=== PATIENT | female | born 1930 | race Caucasian/White ===

== ENCOUNTER 2016-05-10 09:43 | Inpatient (IN) | payer MEDICARE, OTHER ==
[~2016-05-10] VITALS: Ht 160 cm; Wt 64.4 kg
[~2016-05-10 09:43] MED LIST: ASPI-653 PO; CARV25T PO; LORA-302 PO; OMEP20TA86 PO; PLAVIX (*) 75 M75 MG PO; PRA20 PO; ZES10 PO
[2016-05-10 09:50] VITALS: BP 170/83; PULSE 71; RESP 16; O2SAT 97
[2016-05-10] MEDS ORDERED: 0.9% Sodium Chloride 1,000 ML IV ONE (10:25)
--- NOTE | 2016-05-10 10:27 | ED.REPORT ---
HPI-General Illness Date of Service May 10, 2016 ED Provider: Valery Horn MD An 86 year old female with a history of colitis accompanied by hallucinations presents to the ED complaining of hallucinations onset yesterday. Per son, hallucinations have included plastic covering the patient up, and rain in the patient's living room. Per son, the patient still knows who her two sons are and she admits that she knows that other people are not seeing the hallucinations. The patient had similar symptoms a few months ago. Per son , 4 days ago the patient had hematuria and diarrhea so bad that he called EMS and the patient visited the ED. Diarrhea has since stopped. Per son ,the patient's last bowel movement was yesterday. Per son, the patient has been eating regularly, but she has had difficulty sleeping. The patient was recently taken off of antibiotics by Dr. Hendrickson. Nursing Notes Stated Complaint: HALLUCINATIONS Chief Complaint: Psychiatric Complaint Nursing Notes Reviewed: Yes Allergies: Coded Allergies: lisinopril (Verified Allergy, Unknown, joints swell up, 05/10/16) Scheduled Carvedilol (Carvedilol) 12.5 Mg Tablet 12.5 MG PO BID Clopidogrel (Clopidogrel) 75 Mg Tablet 75 MG PO DAILY Losartan Potassium (Losartan Potassium) 25 Mg Tablet 25 MG PO BID Ranitidine (Zantac) 150 Mg Tablet 150 MG PO BID General Time Seen by MD: 10:21 Chief Complaint Other (Hallucinations) Hx Obtained From: Patient, Son Arrived By: Walk-in Sudden in Onset?: No Onset Occurred: Yesterday Symptom Duration: Intermittent Recent Healthcare: Recent doctor visit Similar Sx Previous: Yes Past Medical History Past Medical History Notes: Medical records from [facility] are reviewed. Dr. Hendrickson is her doctor. Past Medical History ischemic Colitis approximaltey one year agoo, accompanied by hallucinations. Cardiac Stents LBBB Renal Failure Peripheral Neuropathy Reports: Hypertension Past Surgical History Reports: Angioplasty, Cholecystectomy, Hysterectomy Social History Per son, patient is in good physical shape. Ambulatory Status Independent Review of Systems Full Review of Systems GI: Reports: Diarrhea, Hematochezia Psychiatric: Reports: Hallucinations, visual Complete sys rev & neg: except as marked. Physical Exam Vital Signs Vital Signs Date Time Temp Pulse Resp B/P Pulse Ox O2 Delivery O2 Flow Rate FiO2 05/10/16 12:54 36.2 74 16 158/94 99 Room Air 05/10/16 09:50 36.0 71 16 170/83 97 Room Air Initial VS: Reviewed ENT: Mucous membranes moist, Conjunctiva normal, No scleral icterus Respiratory: Breath sounds normal, Clear to auscultation, No respiratory distress Cardiovascular: Regular rate & rhythm, Heart sounds normal, Intact distal pulses Abdomen / GI: No guarding, No rebound Extremities: No swelling Skin: Warm (Patient is well perfused. ), Dry, No cyanosis General/Constitutional: Awake, Alert Wrist / Hand: No swelling, No edema Lower Extremity / Pelvis / MS: No swelling, No edema Neurologic: Oriented X3 Patient is alert and orientedx3 with visual, auditory and tactile hallucinatins. Interpretation & Diagnostics Lab Results Interpretation Result Diagram: 05/11/16 0825 05/11/16 0825 Test 05/10/16 11:10 05/10/16 11:30 Urine Osmolality 264mOs/kH2O (250-1200) Osmolality 275 (275-300) Lactic Acid Level 0.9mmol/L (0.4-2.0) Total Bilirubin 0.2mg/dL (0.0-1.2) Aspartate Amino Transf (AST/SGOT) 36U/L (0-50) Alanine Aminotransferase (ALT/SGPT) 19U/L (0-32) Alkaline Phosphatase 65U/L (25-165) Troponin T < 0.010ug/L (0.0-0.011) Pro-B-Type Natriuretic Peptide 200.7pg/mL (0-738) Total Protein 7.2g/dL (6.4-8.4) Albumin 4.2g/dL (3.4-5.0) Procalcitonin 0.03ng/mL (0.00-0.08) Urine Color Yellow (YELLOW) Urine Appearance Clear (CLEAR,HAZY) Urine pH 5.5 (5.0-8.0) Urine Specific [place] 1.005 (1.003-1.035) Urine Protein Negativemg/dL (NEG,TRACE) Urine Glucose (UA) Negativemg/dL (NEGATIVE) Urine Ketones Negativemg/dL (NEGATIVE) Urine Occult Blood Negative (NEGATIVE) Urine Nitrite Negative (NEGATIVE) Urine Bilirubin Negative (NEGATIVE) Urine Urobilinogen Normalmg/dL (NORMAL) Urine Leukocyte Esterase Trace (NEGATIVE) Urine RBC 0-2/hpf (0-2) Urine WBC 0-5/hpf (0-5) Urine Epithelial Cells Occasional/hpf (NONE-MOD) Urine Crystals None seen (NONE SEEN) Urine Bacteria None/hpf (NONE-FEW) Urine Hyaline Casts None/lpf (NONE) Urine Granular Casts None seen (NONE SEEN) Urine Waxy Casts None seen (NONE SEEN) Urine Red Blood Cell Casts None seen (NONE SEEN) Urine White Blood Cell Casts None seen (NONE SEEN) Urine Mucus None seen (None Seen) Urine Trichomonas None seen (NONE SEEN) Urine Yeast None (NONE SEEN) Urinalysis Comment None Urine Culture Reflexed Indicated ECG Interpretation ECG Interpretation: Rate is 66. Sinus rhythm. Left bundle branch block. Time: 10:38 Interpreted by: ED physician X-Ray Chest Interpretation Chest Xray Interpretation: IMPRESSION: 1. No acute cardiopulmonary disease. Dictated by: Hira Del Valle M.D. on 05/10/2016 at 11:08 Approved by: Hira Del Valle M.D. on 05/10/2016 at 11:15 Interpretation / Wet Read by: Interpret - Radiologist Re-Eval/Medical Decision Source of Hx: Old records Time of Eval: 13:53 Re-Evaluation/Progress Note: Rechecked patient and performed physical exam. Explained test results, diagnosis and plan for admission. Patient understands and agrees with the plan. All questions adressed. Consultation : Referral / Consult Name: Karri Hays MD Consulted With: Hospitalist Call Returned at: 14:23 School Community Relations Coordinator: Accepts admit Note: Discussed patient case with Dr. Hays who accepts patient admit. Counseled Regarding: Diagnosis, Lab results, Need for admission Discharge & Departure Primary Impression: Hyponatremia Additional Impression: Altered mental status Disposition: ADMITTED TO HOSPITAL Discharge Condition All VS Reviewed: Yes Condition: Improved Referrals: Jayme Slater MD (PCP) Scribhazel Attestation Portions of this note were transcribed by Rodney Jaramillo. I, Dr. Horn personally performed the history, physical exam and medical decision-making; I reviewed and confirmed the accuracy of the information in the transcribed note. Signed by: Ata Barnett, 05/10/2016 4906.. copies to: Jayme Slater MD, Shawna L MD May 10, 2016 10:27 Rodney Jaramillo May 10, 2016 10:36 None seen (NONE SEEN) Urine White Blood Cell Casts None seen (NONE SEEN) Urine Mucus None seen (None Seen) Urine Trichomonas None seen (NONE SEEN) Urine Yeast None (NONE SEEN) Urinalysis Comment None Urine Culture Reflexed Indicated ECG Interpretation ECG Interpretation: Rate is 66. Sinus rhythm. Left bundle branch block. Time: 10:38 Interpreted by: ED physician X-Ray Chest Interpretation Chest Xray Interpretation: IMPRESSION: 1. No acute cardiopulmonary disease. Dictated by: Hira Del Valle M.D. on 05/10/2016 at 11:08 Approved by: Hira Del Valle M.D. on 05/10/2016 at 11:15 Interpretation / Wet Read by: Interpret - Radiologist Re-Eval/Medical Decision Source of Hx: Old records Time of Eval: 13:53 Re-Evaluation/Progress Note: Rechecked patient and performed physical exam. Explained test results, diagnosis and plan for admission. Patient understands and agrees with the plan. All questions adressed. Consultation : Referral / Consult Name: Karri Hays MD Consulted With: Hospitalist Call Returned at: 14:23 School Community Relations Coordinator: Accepts admit Note: Discussed patient case with Dr. Hays who accepts patient admit. Counseled Regarding: Diagnosis, Lab results, Need for admission Discharge & Departure Primary Impression: Hyponatremia Additional Impression: Altered mental status Disposition: ADMITTED TO HOSPITAL Discharge Condition All VS Reviewed: Yes Condition: Improved Referrals: Jayme Slater MD (PCP) Ata Attestation Portions of this note were transcribed by Rodney Jaramillo. IDr. Horn personally performed the history, physical exam and medical decision-making; I reviewed and confirmed the accuracy of the information in the transcribed note. Signed by: Ata Barnett, 05/10/2016 1852.. copies to: Jayme Slater MD, Shawna L MD May 10, 2016 10:27 Rodney Jaramillo May 10, 2016 10:36 personally performed the history, physical exam and medical decision-making; I reviewed and confirmed the accuracy of the information in the transcribed note. Signed by: Ata Barnett, 05/10/2016 1821. copies to: Jayme Slater MD, Shawna L MD May 10, 2016 10:27 Rodney Jaramillo 31, 2017 10:36 Valery Horn MD May 10, 2016 10:27 Rodney Jaramillo May 10, 2016 10:36
--- NOTE | 2016-05-10 11:16 | DRSVH ---
PROCEDURE: X-RAY CHEST ONE VIEW, PORTABLE ([id number]) INDICATIONS: altered mental status TECHNIQUE: One view of the chest was acquired. COMPARISON: None. FINDINGS: Surgical changes and devices: None. Lungs and pleura: No pleural effusions or pneumothorax. Lungs are clear. Mediastinum: Mediastinal contours appear normal. Heart size is normal. Bones and chest wall: No suspicious bony lesions. Overlying soft tissues appear unremarkable. IMPRESSION: 1. No acute cardiopulmonary disease. Dictated by: Hira Del Valle M.D. on 05/10/2016 at 11:08 Approved by: Hira Del Valle M.D. on 05/10/2016 at 11:15
[2016-05-10 11:27] LABS: BASOPHILS % (AUTO) 0.4 % (0-3); EOSINOPHILS % (AUTO) 4.4 % (0-5); MONOCYTES % (AUTO) 12.9 % (4-12); Mean Corpuscular Volume 90.2 fL (81-100); NEUTROPHILS % (AUTO) 58.1 % (40-74); Platelet Count 240 bil/L (150-400)
[2016-05-10 11:48] LABS: APPEARANCE,URINE CLEAR (CLEAR,HAZY); COLOR,URINE YELLOW (YELLOW); PH,URINE 5.5 (5.0-8.0)
[2016-05-10 11:49] LABS: OCCULT BLOOD,URINE NEGATIVE (NEGATIVE); UROBILINOGEN,URINE NORMAL (NORMAL)
[2016-05-10 11:52] LABS: TROPONIN T < 0.010 ug/L (0.0-0.011)
[2016-05-10 12:54] VITALS: BP 158/94; PULSE 74; RESP 16; O2SAT 99
[2016-05-10] MEDS ORDERED: Alum-Mag Hydrox-Simeth 30 mL Suspension PO PRN (14:40)
[2016-05-10] MEDS ORDERED: Ondansetron 2 mg/mL 2 mL Inj IVPUSH PRN (14:40)
[2016-05-10] MEDS ORDERED: Polyethylene Glycol (PEG) 17 Gm Powder PO PRN (14:40)
[2016-05-10] MEDS ORDERED: CLOP75TA28 PO (14:54)
[2016-05-10] MEDS ORDERED: CARV12.52 PO (14:54)
[2016-05-10] MEDS ORDERED: LOSA25TA21 PO (14:54)
[2016-05-10] MEDS ORDERED: RANI150T11 PO (14:54)
[2016-05-10 15:31] VITALS: BP 155/82; PULSE 85; RESP 16; O2SAT 98
[2016-05-10] MEDS: 0.9% Sodium Chloride 1,000 ML IV SCH (15:53)
--- NOTE | 2016-05-10 16:51 | NUR ---
Admit note: Patient [place] [facility] 1550. Patient is alert and oriented and answering questions appropriately. Patient stated that the hallucinations that she was experiencing have subsided . Patient is able to state her name and birthday and the reason for being in the hospital ("Due to low sodium level"). Patient ordered her dinner with assistance. Her IV NS was started. She was oriented to her room call light and caregivers. Addendum: 05/10/16 at 1701 by LEYLA VILLALOBOS RN Patients Admit questions were completed in the ER by the admit nurse.
--- NOTE | 2016-05-10 18:29 | PCM.HPMED ---
Subjective Date of Service May 10, 2016 Primary Provider: Admitting Physician: Karri Hays MD Primary Care Physician: Jayme Slater MD Attending Physician: Karri Hays MD Admit Status: From the Emergency Department, Full Admit, Remote Telemetry Chief Complaint: Hallucinations History of Present Illness: Carlota Hernandes is a 86 year old female with Colitis, Coronary artery disease, Hyperlipidemia who presents to [facility] emergency department complaining of hallucinations onset yesterday These episodes started about 4 days ago. Per son, the hallucinations have included plastic covering the patient up coming down from the ceiling, and rain in the patient's living room. A few months ago she saw three identical looking men staring at her. This has caused some insomnia as the patient was scared of these hallucinations. Other symptoms includes diarrhea without any nausea or vomiting. She was diagnosed with colitis and the diarrhea had stopped. Denies any melena or hematochezia. He appetite was poor and was still trying to drink fluids. Case discussed with Dr Cabello, Hyponatremia identified and plans to admit for management Review of Systems: Pertinent positives as noted in HPI. All other systems were reviewed and are negative Allergies Coded Allergies: lisinopril (Verified Allergy, Unknown, joints swell up, 05/10/16) Home Medications From Carlota Cowan. [id number] 05/08/2016 10:40 AM 02/15 alendronate 70 mg tablet take 1 tablet by oral route every week in the morning , at least 30 min before first food, beverage, or medication of day Angelica Allergy 180 mg tablet take 1 tablet by oral route every day as needed allopurinol 100 mg tablet take 1 tablet by oral route every day Aspir-Low 81 mg tablet,delayed release take 1 tablet by oral route every day clobetasol 0.05 % scalp solution Apply twice daily. Alternate weekly with fluocinonide. Once controlled alternate weekly but apply 2-3 times a week COREG 12.5MG TABLETS TAKE 1 TABLET BY MOUTH TWICE A DAY fluocinonide 0.05 % topical solution alternate weekly with clobetasol solution hydrocortisone valerate 0.2 % topical cream apply by topical route 2 times every day to the affected area(s) on the face x 2wks then 2-3 times a wk as needed ketoconazole 2 % shampoo alternate daily with other shampoos to the scalp. lather, leave in place for 5 minutes, and then rinse off with water losartan 50 mg tablet take 1/2 tablet by oral route every day ondansetron 4 mg disintegrating tablet take 1 tablet by oral route every 8 hours as needed and place on top of the tongue where they will dissolve, then swallow PLAVIX 75MG TABLETS TAKE 1 TABLET BY MOUTH ONCE DAILY ranitidine 150 mg tablet take 1 tablet by oral route 2 times every day rosuvastatin 5 mg tablet take 1 tablet by oral route every day Salex 6 % shampoo apply by topical route to wet hair ; work into a full lather then rinse thoroughly and pat dry as directed. Do not apply to the face PMH Hypertension Hyperlipidemia Chronic Kidney Disease stage 3 Coronary artery disease s/p PTCA with normal stress test 04/11/15 Chronic LBBB Carotid artery disease Anxiety Dysphagia Gout . Surgical History Hysterectomy and BSO Cardiac Catheterization Cholecystectomy Family History Mother has Hypertension Social History Hx Alcohol Use: No Hx Substance Use: No Hx Tobacco Use: No Smoking Status: Never Smoker Living Arrangement: Alone (with sons checking in on her) Exam Vital Signs Vital Sign - Last Date Time Temp Pulse Resp B/P Pulse Ox O2 Delivery O2 Flow Rate FiO2 05/10/16 12:54 36.2 74 16 158/94 99 Room Air Exam General: Alert, Oriented X3, Cooperative, No acute Distress Eyes: PERRLA, Scleral Anicteric Mouth: Mouth Normal, Mucous Membranes Moist/[place] Neck: Supple, no Thyromegaly, trachea central. Chest & Lungs: Clear to auscultation & percussion, No adventitious breath sounds, no crackles, no wheeze Cardiovascular: Normal S1, Normal S2, No Murmurs/Rubs/Gallops, Regular Rate/ Rhythm, Murmur, Other (No JVD, no peripheral edema) Pulses: Radial (present and equal), Dorsalis Pedi (present and equal) Abdomen: Soft, Non-tender, Non-distended, Normoactive bowel tones. Musculoskeletal: Unremarkable. Normal range of motion, no swollen or erythematous joints Extremities: No edema, no cyanosis, no clubbing. Skin: No rashes. Warm and dry, no erythematous areas Neurological: Grossly neurologically intact, has generalized weakness, Normal Speech, Sensation Intact Lymphatic: Lymph nodes Cervical and Axillary not palpable Lab and Diagnostics Labs Laboratory Tests Test 05/10/16 11:10 05/10/16 11:30 White Blood Count 7.3th/mm3 (3.8-10.1) Red Blood Count 3.88mil/mm3 (3.90-5.20) Hemoglobin 12.4g/dL (12.0-15.6) Hematocrit 35.0% (35.0-46.0) Mean Corpuscular Volume 90.2fL (81-100) Mean Corpuscular Hemoglobin 32.0pg (27.0-35.0) Mean Corpuscular Hemoglobin Concent 35.4% (32.0-37.0) Red Cell Distribution Width 11.8% (12.3-15.4) Platelet Count 240bil/L (150-400) Neutrophils (%) (Auto) 58.1% (40-74) Lymphocytes (%) (Auto) 24.1% (14-46) Monocytes (%) (Auto) 12.9% (4-12) Eosinophils (%) (Auto) 4.4% (0-5) Basophils (%) (Auto) 0.4% (0-3) Sodium Level 123mEq/L (134-144) Potassium Level 3.9mEq/L (3.5-5.2) Chloride Level 85mEq/L (97-108) Carbon Dioxide Level 22mmol/L (18-29) Blood Urea Nitrogen 26mg/dL (8-27) Creatinine 1.21mg/dL (0.57-1.00) Estimat Glomerular Filtration Rate 61mL/min (>59) Glucose Level 99mg/dL (60-99) Lactic Acid Level 0.9mmol/L (0.4-2.0) Calcium Level 10.0mg/dL (8.5-10.1) Total Bilirubin 0.2mg/dL (0.0-1.2) Aspartate Amino Transf (AST/SGOT) 36U/L (0-50) Alanine Aminotransferase (ALT/SGPT) 19U/L (0-32) Alkaline Phosphatase 65U/L (25-165) Troponin T < 0.010ug/L (0.0-0.011) Pro-B-Type Natriuretic Peptide 200.7pg/mL (0-738) Total Protein 7.2g/dL (6.4-8.4) Albumin 4.2g/dL (3.4-5.0) Procalcitonin 0.03ng/mL (0.00-0.08) Urine Color Yellow (YELLOW) Urine Appearance Clear (CLEAR,HAZY) Urine pH 5.5 (5.0-8.0) Urine Specific [place] 1.005 (1.003-1.035) Urine Protein Negativemg/dL (NEG,TRACE) Urine Glucose (UA) Negativemg/dL (NEGATIVE) Urine Ketones Negativemg/dL (NEGATIVE) Urine Occult Blood Negative (NEGATIVE) Urine Nitrite Negative (NEGATIVE) Urine Bilirubin Negative (NEGATIVE) Urine Urobilinogen Normalmg/dL (NORMAL) Urine Leukocyte Esterase Trace (NEGATIVE) Urine RBC 0-2/hpf (0-2) Urine WBC 0-5/hpf (0-5) Urine Epithelial Cells Occasional/hpf (NONE-MOD) Urine Crystals None seen (NONE SEEN) Urine Bacteria None/hpf (NONE-FEW) Urine Hyaline Casts None/lpf (NONE) Urine Granular Casts None seen (NONE SEEN) Urine Waxy Casts None seen (NONE SEEN) Urine Red Blood Cell Casts None seen (NONE SEEN) Urine White Blood Cell Casts None seen (NONE SEEN) Urine Mucus None seen (None Seen) Urine Trichomonas None seen (NONE SEEN) Urine Yeast None (NONE SEEN) Urinalysis Comment None Urine Culture Reflexed Indicated Microbiology 05/10/16 Blood Culture, Received Pending 05/10/16 Urine Culture, Received Pending Result Diagram: 05/10/16 1110 05/10/16 1110 X-Rays, CTs and MRIs X-RAY CHEST ONE VIEW, PORTABLE 05/10 IMPRESSION: 1. No acute cardiopulmonary disease. Dictated by: Hira Del Valle M.D. on 05/10/2016 at 11:08 Approved by: Hira Del Valle M.D. on 05/10/2016 at 11:15 Assessment & Plan Carlota Hernandes is a 86 year old female with Colitis, Coronary artery disease, Hyperlipidemia who presents to [facility] emergency department complaining of hallucinations 1. Acute Hyponatremia. Present on admission Likely Hypovolemic hypotonic hyponatremia. Due to recent bout of diarrhea that has now resolved. Patient not on any diuretics - IV fluids resuscitations - checking serum and Urine osmolality 2. Acute Metabolic Encephalopathy. Present on admission Unclear if is purely due to the Hyponatremia of the patient is developing some psychosis - high risk for delirium, avoid psychoactive medications - if hallucinations persist despite normalizing sodium then consider a psychiatric evaluation 3. Coronary artery disease Currently without any angina or EKG changes (chronic LBBB) - continue Aspirin and Plavix , Coreg 12.5 mg bid and Stain 4 Hypertension - continuing Losartan 25 mg daily and Coreg 5 Hyperlipidemia - continue Rosuvastatin 5 mg daily 6 Gout - continue Allopurinol 100 mg daily - Acetaminophen as needed for mild pain/fever/headache - Bowel regimen as needed - Antiemetic as needed Patient admitted under inpatient status with expected length of stay > 2 midnights for severity of present symptoms, complexities of treatment plan and risk for adverse event . Resuscitation Status: CPR: Attempt Resuscitation Karri Hays MD May 10, 2016 14:53
[2016-05-10 18:51] VITALS: BP 168/76; PULSE 88; RESP 16; O2SAT 96
[2016-05-10 18:51] LABS: OSMOLALITY, URINE 264 mOs/kH2O (250-1200)
[2016-05-10] MEDS: Heparin 5,000 Unit/mL Inj SUBQ SCH (19:41)
[2016-05-10 22:01] VITALS: BP 163/77; PULSE 95; RESP 18; O2SAT 97
[2016-05-11] MEDS: Heparin 5,000 Unit/mL Inj SUBQ SCH ×3 (02:28→16:00)
[2016-05-11] MEDS: 0.9% Sodium Chloride 1,000 ML IV SCH ×2 (02:29→10:42)
[2016-05-11 05:32] VITALS: BP 151/84; PULSE 87; RESP 18; O2SAT 97
[2016-05-11 08:49] LABS: BASOPHILS % (AUTO) 0.5 % (0-3); EOSINOPHILS % (AUTO) 5.6 % (0-5); Mean Corpuscular Volume 92.8 fL (81-100); NEUTROPHILS % (AUTO) 48.5 % (40-74); Platelet Count 234 bil/L (150-400)
[2016-05-11 09:20] LABS: INR 0.97 ratio
[2016-05-11 09:44] LABS: Magnesium 1.7 mg/dL (1.6-2.6)
--- NOTE | 2016-05-11 10:06 | NUR ---
BM Pt states she is unsure when her last BM was but says "it's been awhile." PRN stool softener given this AM. She denies any tenderness to abdomen, no distention noted. BT are hypoactive.
--- NOTE | 2016-05-11 11:15 | NUR ---
Off unit Pt off unit to MRI.
--- NOTE | 2016-05-11 12:30 | DRSVH ---
PROCEDURE: MRI STROKE PROTOCOL ([id number]) Pre- and post-contrast brain MRI, non-contrast brain MR angiogram, pre- and postcontrast neck MR calixto ogram INDICATIONS: altered mental status TECHNIQUE: Brain: Noncontrast axial T1 spin echo, axial T2 fast spin echo, sagittal and axial FLAIR, coronal T2 fast spin echo, axial gradient echo, axial diffusion and ADC through the brain. After the administr ation of contrast, axial 3D VIBE of the cranial vasculature and brain. Brain MRA: Non-contrast 3-D time of flight MR angiogram, with multiple kpppdtk-npppgjqrr-guestouxce (MIP) reformats performed. Neck MRA: Axial and sagittal TruFISP through the neck. Coronal dynamic MR angiogram during administ ration of contrast in the arterial and venous phases, with 3-dimenstional belyrzl-ourjqcqxb-vcoayntmh n (MIP) reformats constructed from subtraction images. COMPARISON: CT brain 04/08/12. FINDINGS: Image quality: Excellent. BRAIN: CSF spaces: There is a cerebral volume loss with prominence of the ventricles and sulci. Basal ciste rns are patent. No extra-axial fluid collections. Brain: Diffusion-weighted images demonstrate no acute infarcts. No intracranial hemorrhage, mass, o r mass effect. Isaac-white matter interface is preserved. There are subcortical and periventricular foci of white matter T2 hyperintensity consistent with mild chronic small vessel ischemic changes. B rainstem appears normal. Normal intravascular flow voids are present. No abnormal intracranial enha ncement. Skull and face: Calvarial marrow signal is normal. Orbits appear normal. Sinuses: Sinuses and mastoids are clear. BRAIN MR ANGIOGRAM: Anterior circulation: Intracranial internal carotid arteries are patent bilaterally. The flow withi n the paired anterior cerebral arteries is patent bilaterally. The flow within the middle cerebral a rteries is patent bilaterally. The anterior communicating artery is visualized. No high-grade steno ses, occlusions, or aneurysms. Posterior circulation: The visualized portions of the vertebral arteries appear patent and join to f orm a patent artery. The flow within the posterior cerebral arteries is patent bilaterally. No high -grade stenoses, occlusions, or aneurysms. NECK MR ANGIOGRAM: Carotids: Great vessels demonstrate conventional anatomy as they arise from the aortic arch. The or igins of the common carotid arteries appear patent. The calibers and courses of both common carotid arteries are normal. There is focal narrowing of less than 50% in the right carotid bulb. There is also narrowing in the proximal right external carotid artery of approximately 60%. The left carotid bulb appears widely patent. The internal carotid arteries demonstrate normal course and caliber. Posterior circulation: The origins of the vertebral arteries appear patent. More superior portions of both vertebral arteries demonstrate normal course and caliber, and join to form a normal appearing basilar artery. Miscellaneous: Subclavian arteries appear patent. Pre-contrast images through the neck demonstrate mild multilevel degenerative disc disease in the lower cervical spine. IMPRESSION: BRAIN MRI: 1. No evidence of infarct or other acute intracranial abnormality. 2. Mild to moderate cerebral volume loss and mild chronic white matter small vessel ischemic changes . BRAIN MR ANGIOGRAM: 1. No high-grade stenosis or occlusion of the central intracranial arteries. NECK MR ANGIOGRAM: 1. Focal narrowing in the right carotid bulb of less than 50%. Left carotid bulb appears widely hill nt. 2. Narrowing in the proximal right external carotid artery of approximately 60%. The estimate of stenosis included in the report of the imaging study was calculated using the NASCET method Dictated by: Hira Del Valle M.D. on 05/11/2016 at 12:28 Approved by: Hira Del Valle M.D. on 05/11/2016 at 12:28
[2016-05-11 14:28] VITALS: BP 178/64; PULSE 69; RESP 20; O2SAT 99
--- NOTE | 2016-05-11 15:09 | NUR ---
Social Work: Initial Assessment Data: Pt is an 86 y/o female admitted for AMS, hyponatremia. Pt's PCP is Dr Slater, pt's insurance is Medicare with [employer]. EMR reviewed. Readmit score is 2. SPECIAL EDUCATION PARAPROFESSIONAL met with pt at bedside, role explained. Pt states she lives in [place] alone in a single story home with no stairs where she uses no DME. Pt states her son visits her often. She states she drives, has no hx of HH or SNF, no LTC or VA benefits, and is not a caregiver. SPECIAL EDUCATION PARAPROFESSIONAL will continue to follow for possible needs. Assessment: Pt who is independent at baseline. Plan: Pt will d/c home via POV when medically stable. SPECIAL EDUCATION PARAPROFESSIONAL will continue to follow for possible needs. YADI Lamar Addendum: 05/11/16 at 1512 by MILVIA PARKER SS Amended: Links added.
[2016-05-11] MEDS ORDERED: Non-Formulary Medication (Ranitidine (Zantac) 150 MG) PO SCH (15:20)
--- NOTE | 2016-05-11 15:23 | PCM.PNMED ---
Subjective Date of Service May 11, 2016 Subjective denies any new issues/complaints. no further hallucinations today Exam Vital Signs Vital Sign - Last Date Time Temp Pulse Resp B/P Pulse Ox O2 Delivery O2 Flow Rate FiO2 05/11/16 14:28 36.4 69 20 178/64 99 Room Air Intake and Output 05/10/16 05/10/16 05/11/16 Cumulative From/Thru 15:00 23:00 07:00 05/10/16 09:50 - 05/11/16 06:36 Intake Total 1000 ml 356 ml 1661 ml 3017 ml Output Total 650 ml 650 ml Balance 1000 ml 356 ml 1011 ml 2367 ml Intake Oral 356 ml 200 ml 556 ml IV Total 1000 ml 1461 ml 2461 ml Output Urine Total 650 ml 650 ml # Voids 0 0 # Bowel Movements 0 0 0 General: Alert, Oriented X3, Cooperative, No Acute Distress Head: Normal Eyes: PERRLA, EOMI, Scleral Anicteric Nose: Mucous Membr Moist/[place] Mouth: Mucous Membr Moist/[place] Neck: Supple Chest & Lungs: Chest Wall Normal, Clear to auscultation & percussion Cardiovascular: Regular Rate/Rhythm Pulses: NL carotid, radial, femoral, DP, PT Abdomen: Non-tender, Non-distended, Normoactive bowel tones, Soft Extremities: No cyanosis/clubbing/edma bilat Neurological: Grossly Neurologically Intact, Cranial Nerves 2-12 Intact, Normal Speech IVs and Medications Medications Reviewed: Medications were reviewed in detail Lab and Diagnostics Result Diagram: 05/11/16 0825 05/11/16 0825 X-Rays, CTs and MRIs X-RAY CHEST ONE VIEW, PORTABLE 05/10 IMPRESSION: 1. No acute cardiopulmonary disease. Dictated by: Hira Del Valle M.D. on 05/10/2016 at 11:08 Approved by: Hira Del Valle M.D. on 05/10/2016 at 11:15 Assessment & Plan 86 year old female with Colitis, Coronary artery disease, Hyperlipidemia who presents to [facility] emergency department complaining of hallucinations 1. Acute Hyponatremia. Present on admission. Resolved with IVF Likely Hypovolemic hypotonic hyponatremia. Due to recent bout of diarrhea that has now resolved. Patient not on any diuretics - f/u 2. Acute Metabolic Encephalopathy. Present on admission. improved Unclear if is purely due to the Hyponatremia of the patient is developing some psychosis - high risk for delirium, avoid psychoactive medications - if hallucinations persist despite normalizing sodium then consider a psychiatric evaluation 3. Coronary artery disease Currently without any angina or EKG changes (chronic LBBB) - continue home dose Plavix , Coreg 12.5 mg bid and Stain 4. Hypertension - continuing Losartan 25 mg daily and Coreg 5. Hyperlipidemia - continue Rosuvastatin 5 mg daily 6. Gout - continue Allopurinol 100 mg daily Dispo: likely tomorrow if continue to remain stable and asymptomatic Resuscitation Status: CPR: Attempt Resuscitation Gerard Pennington May 11, 2016 15:23
--- NOTE | 2016-05-11 16:03 | NUR ---
Elevated Systolic Scheduled Blood pressure medication given as ordered. patient is asymptomatic.
[2016-05-11 17:02] VITALS: BP 179/76
[2016-05-11 18:34] VITALS: PULSE 67; RESP 18; O2SAT 99
[2016-05-11 20:11] VITALS: BP 158/75; PULSE 55; RESP 18; O2SAT 96
[2016-05-12] MEDS: Heparin 5,000 Unit/mL Inj SUBQ SCH ×2 (00:25→08:13)
--- NOTE | 2016-05-12 05:47 | NUR ---
Uneventful Night pt has been able to sleep during the night. no complaints during the night, pt has denied pain. IV SL, patent when flushed. VSS, BP elevated, afebrile, on RA. pt has been pleasant and cooperative with care. call light placed within reach, using appropriately. intentional rounding in effect.
[2016-05-12 05:49] VITALS: BP 163/80; PULSE 78; RESP 16; O2SAT 98
[2016-05-12 06:49] LABS: BASOPHILS % (AUTO) 0.3 % (0-3); EOSINOPHILS % (AUTO) 8.6 % (0-5); MONOCYTES % (AUTO) 10.4 % (4-12); Mean Corpuscular Hemoglobin 31.9 pg (27.0-35.0); Mean Corpuscular Volume 93.7 fL (81-100); NEUTROPHILS % (AUTO) 46.6 % (40-74); Platelet Count 231 bil/L (150-400)
--- NOTE | 2016-05-12 09:17 | NUR ---
ROGER ROGER signed
--- NOTE | 2016-05-12 10:35 | PCM.DIMED ---
Discharge Instructions Date of Service May 12, 2016 Dates of Hospitalization May 10, 2016 at 14:37 Discharge Diagnosis Discharge Diagnosis 1. Acute Hyponatremia. Present on admission. Resolved with IV Fluid. Likely Hypovolemic hypotonic hyponatremia. Due to recent bout of diarrhea that has now resolved. 2. Acute Metabolic Encephalopathy with associated visual hallucinations. Present on admission. Resolved Unclear exact etiology but possibly due to underlying Hyponatremia and dehydration. 3. Coronary artery disease, chronic. presumed stable. 4. Hypertension. stable 5. History of Hyperlipidemia 6. History of Gout Diet Low fat, Low Sodium, Heart Healthy Activity No restrictions Call your provider Fever or Chills, Shortness of breath, Bleeding, Chest pain, Weakness (unilateral ) Patient Instructions Seek immediate medical attention if any new or worsening signs or symptoms occur. Follow-up plan 1. Followup with primary care provider within coming week. Follow-up Provider: Jayme Slater MD Follow-up with PCP in: 1 week Gerard Pennington May 12, 2016 10:35
--- NOTE | 2016-05-12 10:56 | NUR ---
Discharge Patient given discharge orders. Patient given medication list and explained verbally when next dose is due. Patient given informational packet. Patient IV removed fully intact and asymptomatic. Patient Son in room at time of discharge for Follow up instructions and transportation at time of discharge.
--- NOTE | 2016-05-12 15:43 | PCM.DC.MED ---
Discharge Summary Date of Service May 12, 2016 Dates of Hospitalization Date of Hospital Admission May 10, 2016 at 14:37 Date of Discharge: May 12, 2016 Providers: Admitting Physician: Karri Hays MD Primary Care Physician: Jayme Slater MD Attending Physician: Karri Hays MD Diagnosis at Time of Discharge Diagnosis at Time of Discharge 1. Acute Hyponatremia. Present on admission. Resolved with IV Fluid. Likely Hypovolemic hypotonic hyponatremia. Due to recent bout of diarrhea that has now resolved. 2. Acute Metabolic Encephalopathy with associated visual hallucinations. Present on admission. Resolved Unclear exact etiology but possibly due to underlying Hyponatremia and dehydration. 3. Coronary artery disease, chronic. presumed stable. 4. Hypertension. stable 5. History of Hyperlipidemia 6. History of Gout Procedures XRay, CTs & MRIs X-RAY CHEST ONE VIEW, PORTABLE 05/10 IMPRESSION: 1. No acute cardiopulmonary disease. Dictated by: Hira Del Valle M.D. on 05/10/2016 at 11:08 Approved by: Hira Del Valle M.D. on 05/10/2016 at 11:15 Date of Service: 05/11/16 0803 PROCEDURE: MRI STROKE PROTOCOL ([id number]) Pre- and post-contrast brain MRI, non-contrast brain MR angiogram, pre- and postcontrast neck MR angiogram IMPRESSION: BRAIN MRI: 1. No evidence of infarct or other acute intracranial abnormality. 2. Mild to moderate cerebral volume loss and mild chronic white matter small vessel ischemic changes. BRAIN MR ANGIOGRAM: 1. No high-grade stenosis or occlusion of the central intracranial arteries. NECK MR ANGIOGRAM: 1. Focal narrowing in the right carotid bulb of less than 50%. Left carotid bulb appears widely patent. 2. Narrowing in the proximal right external carotid artery of approximately 60% . The estimate of stenosis included in the report of the imaging study was calculated using the NASCET method Dictated by: Hira Del Valle M.D. on 05/11/2016 at 12:28 Approved by: Hira Del Valle M.D. on 05/11/2016 at 12:28 Brief History As noted in H&P by Dr. Hays: Carlota Hernandes is a 86 year old female with Colitis, Coronary artery disease, Hyperlipidemia who presents to [facility] emergency department complaining of hallucinations onset yesterday These episodes started about 4 days ago. Per son, the hallucinations have included plastic covering the patient up coming down from the ceiling, and rain in the patient's living room. A few months ago she saw three identical looking men staring at her. This has caused some insomnia as the patient was scared of these hallucinations. Other symptoms includes diarrhea without any nausea or vomiting. She was diagnosed with colitis and the diarrhea had stopped. Denies any melena or hematochezia. He appetite was poor and was still trying to drink fluids. Case discussed with Dr Cabello, Hyponatremia identified and plans to admit for management Hospital Course 1. Acute Hyponatremia. Present on admission. Resolved with IVF Likely Hypovolemic hypotonic hyponatremia. Due to recent bout of diarrhea that has now resolved. Patient not on any diuretics - f/u 2. Acute Metabolic Encephalopathy with noted visual hallucination. Present on admission. Resolved without any further episodes noted during this hospitalization Unclear if is purely due to the Hyponatremia of the patient is developing some psychosis - high risk for delirium, avoid psychoactive medications 3. Coronary artery disease Currently without any angina or EKG changes (chronic LBBB) - continue home dose Plavix , Coreg 12.5 mg bid and Stain 4. Hypertension - continuing Losartan 25 mg daily and Coreg 5. Hyperlipidemia - continue Rosuvastatin 5 mg daily 6. Gout - continue Allopurinol 100 mg daily by day of d/c lungs CTA bilat. Neuro exam non-focal. pt awake, alert, Ox3 Exam Vital Signs (Last) Date Time Temp Pulse Resp B/P Pulse Ox O2 Delivery O2 Flow Rate FiO2 05/12/16 05:49 36.2 78 16 163/80 98 Room Air Test 05/10/16 11:10 05/10/16 11:30 05/11/16 08:25 05/12/16 06:15 Urine Osmolality 264mOs/kH2O (250-1200) Osmolality 275 (275-300) Lactic Acid Level 0.9mmol/L (0.4-2.0) Total Bilirubin 0.2mg/dL (0.0-1.2) Aspartate Amino Transf (AST/SGOT) 36U/L (0-50) Alanine Aminotransferase (ALT/SGPT) 19U/L (0-32) Alkaline Phosphatase 65U/L (25-165) Troponin T < 0.010ug/L (0.0-0.011) Pro-B-Type Natriuretic Peptide 200.7pg/mL (0-738) Total Protein 7.2g/dL (6.4-8.4) Albumin 4.2g/dL (3.4-5.0) Procalcitonin 0.03ng/mL (0.00-0.08) Urine Color Yellow (YELLOW) Urine Appearance Clear (CLEAR,HAZY) Urine pH 5.5 (5.0-8.0) Urine Specific [place] 1.005 (1.003-1.035) Urine Protein Negativemg/dL (NEG,TRACE) Urine Glucose (UA) Negativemg/dL (NEGATIVE) Urine Ketones Negativemg/dL (NEGATIVE) Urine Occult Blood Negative (NEGATIVE) Urine Nitrite Negative (NEGATIVE) Urine Bilirubin Negative (NEGATIVE) Urine Urobilinogen Normalmg/dL (NORMAL) Urine Leukocyte Esterase Trace (NEGATIVE) Urine RBC 0-2/hpf (0-2) Urine WBC 0-5/hpf (0-5) Urine Epithelial Cells Occasional/hpf (NONE-MOD) Urine Crystals None seen (NONE SEEN) Urine Bacteria None/hpf (NONE-FEW) Urine Hyaline Casts None/lpf (NONE) Urine Granular Casts None seen (NONE SEEN) Urine Waxy Casts None seen (NONE SEEN) Urine Red Blood Cell Casts None seen (NONE SEEN) Urine White Blood Cell Casts None seen (NONE SEEN) Urine Mucus None seen (None Seen) Urine Trichomonas None seen (NONE SEEN) Urine Yeast None (NONE SEEN) Urinalysis Comment None Urine Culture Reflexed Indicated Prothrombin Time 10.4sec (8.1-12.5) Prothromb Time International Ratio 0.97ratio Activated Partial Thromboplast Time 35.4sec (22.8-33.0) Magnesium Level 1.7mg/dL (1.6-2.6) Thyroid Stimulating Hormone (TSH) 3.170uIU/mL (0.450-4.500) White Blood Count 6.5th/mm3 (3.8-10.1) Red Blood Count 3.64mil/mm3 (3.90-5.20) Hemoglobin 11.6g/dL (12.0-15.6) Hematocrit 34.1% (35.0-46.0) Mean Corpuscular Volume 93.7fL (81-100) Mean Corpuscular Hemoglobin 31.9pg (27.0-35.0) Mean Corpuscular Hemoglobin Concent 34.0% (32.0-37.0) Red Cell Distribution Width 12.7% (12.3-15.4) Platelet Count 231bil/L (150-400) Neutrophils (%) (Auto) 46.6% (40-74) Lymphocytes (%) (Auto) 33.8% (14-46) Monocytes (%) (Auto) 10.4% (4-12) Eosinophils (%) (Auto) 8.6% (0-5) Basophils (%) (Auto) 0.3% (0-3) Sodium Level 138mEq/L (134-144) Potassium Level 4.3mEq/L (3.5-5.2) Chloride Level 101mEq/L (97-108) Carbon Dioxide Level 24mmol/L (18-29) Blood Urea Nitrogen 15mg/dL (8-27) Creatinine 1.03mg/dL (0.57-1.00) Estimat Glomerular Filtration Rate 73mL/min (>59) Glucose Level 93mg/dL (60-99) Calcium Level 9.3mg/dL (8.5-10.1) Discharge Medications Discharge Medications Carvedilol (Carvedilol) 12.5 Mg Tablet 12.5 MG PO BID (Reported) Clopidogrel (Clopidogrel) 75 Mg Tablet 75 MG PO DAILY (Reported) Losartan Potassium (Losartan Potassium) 25 Mg Tablet 25 MG PO BID (Reported) Ranitidine (Zantac) 150 Mg Tablet 150 MG PO BID (Reported) Followup Plan Disposition: home Follow-up plan 1. Followup with primary care provider within coming week. Discharge Diet: Low fat, Low Sodium, Heart Healthy Discharge Activity: No restrictions Patient Instructions Seek immediate medical attention if any new or worsening signs or symptoms occur. Follow-up Provider: Jayme Slater MD Follow-up with PCP in: 1 week Time spent 30 min copies to: Miguel Angel Britt MD; Jayme Slater MD, Masoud May 12, 2016 15:43
== END 2016-05-12 10:56 | disposition home or self-care (01) | DRG 640 ==
LOC: SED 09:43 → MPC 14:37
PROVIDERS: ADMIT Hospitalist; ATTEND Hospitalist
DX: E87.1 Hypo-osmolality and hyponatremia (principal); G93.41 Metabolic encephalopathy; R44.1 Visual hallucinations; N18.3 Chronic kidney disease, stage 3 (moderate); Z98.61 Coronary angioplasty status; I25.10 Atherosclerotic heart disease of native coronary artery without angina pectoris; E78.5 Hyperlipidemia, unspecified; M10.9 Gout, unspecified; I12.9 Hypertensive chronic kidney disease with stage 1 through stage 4 chronic kidney disease, or unspecified chronic kidney disease